=== PATIENT | male | born 1965 | race Caucasian/White ===

== ENCOUNTER 2021-02-26 13:58 | Emergency (ER) | payer BC, SELFPAY ==
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
[2021-02-26 14:02] VITALS: BP 134/94; PULSE 56; RESP 18; TEMP 36.4; O2SAT 98
[2021-02-26] MEDS: HYDROcodone/acetaminophen (*CRX) 5-325 MG TABLET 1 TAB PO (14:22)
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
--- NOTE | 2021-02-26 15:50 | PC.NURSE ---
Report given to CLAIRE Redmond
[2021-02-26] MEDS: MORPHINE SULFATE (*CRX) 4 MG/ML INJ IV PUSH (17:07)
[2021-02-26 17:46] VITALS: BP 142/84; PULSE 64; RESP 20; O2SAT 96
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
[2021-02-26 18:10] VITALS: BP 142/84; PULSE 64; RESP 20; O2SAT 96
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
--- NOTE | 2021-02-26 18:40 | PC.NURSE ---
Assumed care of pt. at this time. Report from CLAIRE Redmond
--- NOTE | 2021-02-26 18:45 | PC.NURSE ---
Per Ahn MARQUEZ [facility] cannot transport pt. until 02/28/21. Will continue to attempt to find an ambulance.
--- NOTE | 2021-02-26 18:58 | PC.NURSE ---
Per Anh MARQUEZ [facility] is to fax some paperwork for RN to fill out for possible pt. transport.
--- NOTE | 2021-02-26 19:06 | PC.NURSE ---
Provided pt. w/ urinal. pt. still refusing C-collar. Pt. educated on the risks of not wearing c-collar
--- NOTE | 2021-02-26 19:22 | PC.NURSE ---
called [facility], [facility] no beds 1600, called [facility] accepted to , 1613, called [facility], no truck available, only have truck untill 9pm,. called [facility]56, no truck available down several trucks, called [facility], 1713 no trucks available tonite, called [facility] of 4pm on given, at called 173, cancelled at 1935.. called [facility] 1750, unable to do trip, called [facility], not able to do trip, called [facility]52 they accepted the trip and are sending amb. from [place].will be on the way at 2100.
[2021-02-26 19:25] VITALS: BP 146/78; PULSE 88; RESP 18; O2SAT 100
--- NOTE | 2021-02-26 19:29 | PC.NURSE ---
[facility] called and has a crew on the way, will be here at 2100
--- NOTE | 2021-02-26 19:42 | PC.NURSE ---
cancelled [facility] at 1935.
[2021-02-26] MEDS: ACETAMINOPHEN 325 MG TABLET 650 MG PO (20:31)
[2021-02-26 20:35] VITALS: BP 148/80; PULSE 88; RESP 18; O2SAT 100
--- NOTE | 2021-02-26 21:20 | PC.NURSE ---
Pt. transported via stretcher by [facility] to [facility] in [place]. pt. report given by prior RN
== END 2021-02-26 21:20 | disposition short-term general hospital (02) ==
LOC: ANHED 14:37
PROVIDERS: Emergency Provider Emergency Medicine
DX: S82.142A Displaced bicondylar fracture of left tibia, initial encounter for closed fracture (principal); V18.4XXA Pedal cycle driver injured in noncollision transport accident in traffic accident, initial encounter; Y93.55 Activity, bike riding
CPT/HCPCS: 73562; 73590; 96374; 99285; A9270; J2270; L0140